=== PATIENT | female | born 1945 | race Hispanic/Latino ===

== ENCOUNTER 2018-02-27 07:06 | Emergency (ER) | payer MEDICARE ==
[2018-02-27 07:32] VITALS: TEMP 98
[2018-02-27 07:50] VITALS: BMI 26.9
--- NOTE | 2018-02-27 09:44 | RAD ---
PROCEDURE: Radiographs of the Chest and Right Ribs. HISTORY: rib series s/p fall COMPARISON: None available. TECHNIQUE: Frontal radiograph of the chest and multiple oblique radiographs of the right ribs were obtained. FINDINGS: RIGHT RIBS: Healing rib fractures are seen on the right from the 4th through 6th ribs. No acute fractures LUNGS: Clear. PLEURA: No pneumothorax or pleural fluid. CARDIOVASCULAR: Normal sized heart. No pulmonary vascular congestion. OTHER FINDINGS: None. IMPRESSION: Healing rib fractures are seen on the right from the 4th through 6th ribs. No acute fractures
--- NOTE | 2018-02-27 09:46 | RAD ---
PROCEDURE: Radiographs of the pelvis. HISTORY: fall COMPARISON: CT 05/12/2017 FINDINGS: BONES: Pelvic Bones: Unremarkable. Hips: Grossly unremarkable. JOINTS: Sacroiliac Joints: There is chronic bony sclerosis around the left SI joint. Pubic Symphysis: Unremarkable. OTHER FINDINGS: None. IMPRESSION: No acute findings
[2018-02-27 10:17] VITALS: O2SAT 98
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
[2018-02-27 11:32] VITALS: BP 165/71; PULSE 75; RESP 18
== END 2018-02-27 11:44 | disposition home or self-care (01) ==
LOC: ED 07:06
DX: S20.211A Contusion of right front wall of thorax, initial encounter (principal); W01.0XXA Fall on same level from slipping, tripping and stumbling without subsequent striking against object, initial encounter; Y92.9 Unspecified place or not applicable